=== PATIENT | male | born 1975 | race Caucasian/White ===

== ENCOUNTER → 2017-02-21 | Outpatient (CLI) | payer OTHER ==
--- NOTE | ~2017-02-21 | CT2 ---
[facility] A Service of [facility] & [facility] / [facility] RADIOLOGY TEXT RESULTS PATIENT: JACKY LEE LOCATION: [facility] : 73 UNIT #: [id number] AGE: [address]: MARTÍNEZ DORMAN MD SEX: M ORDER DR: [id number] [facility]. [place], [place] [address] [id number] MR#: [id number] Acc #: [id number] NAME: JACKY LEE : 1975 SEX: M STUDY DATE/TIME: 02/21/2017 13:26 UNIT: [facility] ROOM: STUDY DESCRIPTION: CT Abd and Pelv W Cont Attending Physician: Martínez Dorman M.D. Referring Physician: Martínez Dorman M.D. Ordering Physician: Martínez Dorman M.D. Primary Care Physician: Primary Care Physician No MEDICAL IMAGING REPORT This report is preliminary unless electronic signature is present EXAM Abdomen and pelvis CT with contrast HISTORY Constipation and abdominal distension for the past 4-5 months. History of pulmonary embolism 2 months ago. TECHNIQUE Axial images were obtained with oral and intravenous contrast. 100 mL of Isovue was used. Comparison scan from 12/13/2016. This CT examination was performed with one or more of the following radiation dose reduction techniques: automatic exposure control, adjustment of mA and/or kV according to patient size, and iterative reconstruction. FINDINGS The pulmonary artery filling defect at the right lung base seen on the previous examination has cleared. There is a small residual infiltrate at the right base likely representing a small pulmonary infarct. In the abdomen, hepatic steatosis is noted. The spleen, pancreas, kidneys and adrenals have a normal appearance. There is no evidence of retroperitoneal adenopathy or ascites and no distended bowel loops are seen. No filling defects are seen in the pelvic veins or inferior vena cava. In the pelvis, there is no evidence of adenopathy, mass or fluid collection. 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 Resolution of filling defects in right lower lobe pulmonary artery since the previous scan. No acute or inflammatory changes noted in the abdomen or pelvis. Dictated by... [facility] A Service of [facility] & [facility] / [facility] RADIOLOGY TEXT RESULTS PATIENT: JACKY LEE LOCATION: [facility] : 73 UNIT #: [id number] AGE: [address]: MARTÍNEZ DORMAN MD SEX: M ORDER DR: Alessandro Norton M.D. THIS IS AN ELECTRONICALLY VERIFIED REPORT Alessandro Norton M.D. at 02/25/2017 4:55 PM THANIA/chevy TD: 02/24/2017 08:18 JOB #: [id number] MEDICAL IMAGING REPORT Page 1 of 1 COPY
== END | disposition home or self-care (01) ==
LOC: CCAT 12:12
DX: I26.99 Other pulmonary embolism without acute cor pulmonale (principal)
CPT/HCPCS: 74177; Q9967